=== PATIENT | female | born 1980 | race American Indian/Alaskan Native ===

== ENCOUNTER 2016-06-04 18:04 | Emergency (ER) | payer MEDICAID, OTHER ==
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
[2016-06-04] MEDS ORDERED: Acetaminophen/HYDROcodone 325-10 MG Tab PO ONE (18:31)
[2016-06-04 18:56] LABS: CHLORIDE,CL 104 mmol/L (101-111); SODIUM,NA 139 mmol/L (135-145)
[2016-06-04] MEDS ORDERED: Acetaminophen 500 MG Tab PO ONE (19:24)
[2016-06-04] MEDS ORDERED: Acetaminophen 500 MG Tab ONE (19:25)
== END 2016-06-04 19:25 | disposition home or self-care (01) ==
LOC: DL.ED 18:04
DX: S16.1XXA Strain of muscle, fascia and tendon at neck level, initial encounter (principal); S29.019A Strain of muscle and tendon of unspecified wall of thorax, initial encounter; S39.012A Strain of muscle, fascia and tendon of lower back, initial encounter; E11.9 Type 2 diabetes mellitus without complications; Z86.2 Personal history of diseases of the blood and blood-forming organs and certain disorders involving the immune mechanism; Z98.51 Tubal ligation status; Z88.8 Allergy status to other drugs, medicaments and biological substances; Z91.09 Other allergy status, other than to drugs and biological substances; V43.52XA Car driver injured in collision with other type car in traffic accident, initial encounter
CPT/HCPCS: 36415; 72040; 72070; 72100; 80053; 80305; 81001; 81025; 85025; 99285; A9270; G0480

== ENCOUNTER 2016-09-05 23:26 | Emergency (ER) | payer MEDICAID ==
[2016-09-06 00:25] VITALS: BP 141/70
[2016-09-06] MEDS ORDERED: diphenhydrAMINE 50 MG Cap PO ONE (00:34)
[2016-09-06] MEDS ORDERED: methylPREDNISolone Sodium Succinate 40 MG/1 ML SDV IM ONE (00:34)
--- NOTE | 2016-09-06 00:36 | EDM.PDOC ---
ED HPI GENERAL MEDICAL PROBLEM - General Chief Complaint: Allergic Reaction Stated Complaint: POSSIBLE ALLERGIC REACTION Time Seen by Provider: 09/06/16 00:20 Source of Information: Reports: Patient History Limitations: Reports: No Limitations - History of Present Illness INITIAL COMMENTS - FREE TEXT/NARRATIVE: This 36 yo female patient reports to the ED with a possible allergic reaction. The patient reports she has an area on her right middle finger, right lower lip , left side of her nose and left upper eyelid. 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 Onset: Today Duration: Constant, Getting Worse Location: Reports: Face, Upper Extremity, Right Quality: Reports: Ache, Dull Severity: Mild Improves with: Reports: None Worsens with: Reports: None Associated Symptoms: Reports: No Other Symptoms Lip Pain Score (Numeric/FACES): 3 - Related Data Allergies Allergy/AdvReac Type Severity Reaction Status Date / Time iron Allergy Other Verified 09/06/16 00:11 naproxen Allergy Other Verified 09/06/16 00:11 Home Meds: Home Meds metFORMIN HCl [Metformin HCl] 1,000 mg PO BID 09/17/15 [History] Past Medical History - Past Health History Medical/Surgical History: Denies Medical/Surgical History HEENT History: Reports: Impaired Vision, Other (See Below) Other HEENT History: wears glasses 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 can not . Psychiatric History: Reports: Suicide Attempt Endocrine/Metabolic History: Reports: Diabetes, Type II Hematologic History: Reports: Anemia, Blood Transfusion(s), Iron Deficiency - Infectious Disease History Infectious Disease History: Reports: Chicken Pox - Past Surgical History HEENT Surgical History: Reports: None GI Surgical History: Reports: Cholecystectomy Female Surgical History: Reports: Section, D&C, Dilitation & Evacuation, Tubal Ligation Neurological Surgical History: Reports: None Musculoskeletal Surgical History: Reports: Arthroscopic Knee Social & Family History - Family History Family Medical History: Noncontributory - Tobacco Use Smoking Status *Q: Never Smoker Second Hand Smoke Exposure: No - Caffeine Use Caffeine Use: Reports: Coffee, Soda - Recreational Drug Use Recreational Drug Use: No ED ROS ALLERGIC REACTION - Review of Systems Review Of Systems: ROS reveals no pertinent complaints other than HPI. ED EXAM GENERAL NO PERIP PULSE - Physical Exam Exam: See Below Exam Limited By: No Limitations General Appearance: Alert, WD/WN, No Apparent Distress Eye Exam: Bilateral Eye: EOMI, Normal Inspection, PERRL Ears: Normal External Exam, Normal Canal, Hearing Grossly Normal, Normal TMs Nose: Normal Inspection, Normal Mucosa, No Blood Throat/Mouth: Normal Teeth, Normal Gums, Normal Oropharynx, Normal Voice, No Airway Compromise, Other (pustule on right lower lip) Head: Atraumatic, Normocephalic Neck: Normal Inspection, Supple, Non-Tender, Full Range of Motion Respiratory/Chest: No Respiratory Distress, Lungs Clear, Normal Breath Sounds, No Accessory Muscle Use, Chest Non-Tender Cardiovascular: Normal Peripheral Pulses, Regular Rate, Rhythm, No Edema, No Gallop, No JVD, No Murmur, No Rub GI/Abdominal: Normal Bowel Sounds, Soft, Non-Tender, No Organomegaly, No Distention, No Abnormal Bruit, No Mass (Female) Exam: Deferred Rectal (Female) Exam: Deferred Back Exam: Normal Inspection, Full Range of Motion, NT Extremities: Normal Range of Motion, Non-Tender, No Pedal Edema, Normal Capillary Refill Neurological: Alert, Oriented, CN II-XII Intact, Normal Cognition, Normal Gait, Normal Reflexes, No Motor/Sensory Deficits Psychiatric: Normal Affect, Normal Mood Skin Exam: Warm, Dry, Normal Color, Erythema (right middle finger, right lower lip, left nasal fold, left upper eyelid) Lymphatic: No Adenopathy Course - Vital Signs Last Recorded V/S: Last Vital Signs Temp 36.4 C 09/06/16 00:24 Pulse 66 09/06/16 00:24 Resp 14 09/06/16 00:24 BP 141/70 H 09/06/16 00:24 Pulse Ox 100 09/06/16 00:24 Departure - Departure Time of Disposition: 00:46 Disposition: Home, Self-Care 01 Condition: fair Clinical Impression: Contact dermatitis Qualifiers: Contact dermatitis type: unspecified Contact dermatitis trigger: unspecified trigger Qualified Code(s): L25.9 - Unspecified contact dermatitis, unspecified cause - Discharge Information Instructions: Poison Richa Dermatitis, [id number], Contact Dermatitis, Easy-to- Read Forms: ED Department Discharge Care Plan Goals: The patient was advised of the examination results during the visit. The patient was given an injection of SoluMedrol while in the ED and an oral dose of Benadryl. The patient was discharged with a script for a Medrol Dose Pack to take as directed. The patient was encouraged to wash her clothing and bedding and warm water. If the patient has any additional symptoms or concerns, the patient should follow-up with her primary care facility or return to the emergency department.
== END 2016-09-06 00:58 | disposition home or self-care (01) ==
LOC: DL.ED 23:26
DX: L25.9 Unspecified contact dermatitis, unspecified cause (principal); E11.9 Type 2 diabetes mellitus without complications; Z86.2 Personal history of diseases of the blood and blood-forming organs and certain disorders involving the immune mechanism; Z90.710 Acquired absence of both cervix and uterus; Z98.890 Other specified postprocedural states; Z91.09 Other allergy status, other than to drugs and biological substances; Z90.49 Acquired absence of other specified parts of digestive tract; Z98.51 Tubal ligation status
CPT/HCPCS: 96372; 99283; 99284; J2920; Q0163

== ENCOUNTER 2016-12-21 16:45 | Emergency (ER) | payer MEDICAID ==
[2016-12-21] MEDS ORDERED: Acetaminophen/HYDROcodone 325-10 MG Tab PO ONE (16:46)
[2016-12-21 18:29] VITALS: BP 133/75
[2016-12-21] MEDS ORDERED: Clindamycin HCl 150 MG Cap PO ONE (19:39)
--- NOTE | 2016-12-21 19:44 | EDM.PDOC ---
ED HPI GENERAL MEDICAL PROBLEM - General Chief Complaint: Skin Complaint Stated Complaint: SPIDER BITE, IRRITATED AND PAINFUL Time Seen by Provider: 12/21/16 19:40 Source of Information: Reports: Patient History Limitations: Reports: No Limitations - History of Present Illness INITIAL COMMENTS - FREE TEXT/NARRATIVE: got bit few days ago, has been doing daily dressing changes with ABX oint' was doing ok till now. 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 can not . Psychiatric History: Reports: Suicide Attempt Endocrine/Metabolic History: Reports: Diabetes, Type II Hematologic History: Reports: Anemia, Blood Transfusion(s), Iron Deficiency - Infectious Disease History Infectious Disease History: Reports: Chicken Pox - Past Surgical History HEENT Surgical History: Reports: None GI Surgical History: Reports: Cholecystectomy Female Surgical History: Reports: Section, D&C, Dilitation & Evacuation, Tubal Ligation Neurological Surgical History: Reports: None Musculoskeletal Surgical History: Reports: Arthroscopic Knee Social & Family History - Family History Family Medical History: Noncontributory - Tobacco Use Smoking Status *Q: Never Smoker Second Hand Smoke Exposure: No - Caffeine Use Caffeine Use: Reports: Coffee, Soda, Tea - Recreational Drug Use Recreational Drug Use: No ED ROS GENERAL - Review of Systems Review Of Systems: ROS reveals no pertinent complaints other than HPI. ED EXAM, SKIN/RASH Exam: See Below Exam Limited By: No Limitations General Appearance: Alert, WD/WN, Mild Distress, Other (discomfort) Ears: Hearing Grossly Normal Head: Atraumatic Neck: Non-Tender, Full Range of Motion Respiratory/Chest: No Respiratory Distress Cardiovascular: Regular Rate, Rhythm GI/Abdominal: Soft, Non-Tender Extremities: Other (left lateral calf local erythema infected bug bite without lymphangitis) Neurological: Alert, Oriented, Normal Cognition, Normal Gait, No Motor/Sensory Deficits Psychiatric: Normal Affect, Normal Mood Skin: Warm, Dry, Normal Color Location, Skin: Lower Extremity, Left Associated features: Warmth, Tenderness, Inflammation. No: Lymphangitis, Weeping Lymphatic: No Adenopathy Course - Vital Signs Last Recorded V/S: Last Vital Signs Temp 36.5 C 12/21/16 18:28 Pulse 80 12/21/16 18:28 Resp 16 12/21/16 18:28 BP 133/75 12/21/16 18:28 Pulse Ox 100 12/21/16 18:28 - Orders/Labs/Meds Orders: Active Orders 24 hr Category Date Time Status Clindamycin HCl [Cleocin] Med 12/21/16 19:39 Once 150 mg PO ONETIME ONE Departure - Departure Time of Disposition: 19:42 Disposition: Home, Self-Care 01 Condition: Good Clinical Impression: Infected bite wound - Discharge Information Instructions: Spider Bite, [id number] Additional Instructions: 1) elevate leg as much as possible 2) continue daily wound care 3) recheck if looks worse rx given; clindamycin 150mg qid x 40 vicodin 5/325mg bid prn x 12 - My Orders Last 24 Hours: My Active Orders 12/21/16 19:39 Clindamycin HCl [Cleocin] 150 mg PO ONETIME ONE - Assessment/Plan Last 24 Hours: My Active Orders 12/21/16 19:39 Clindamycin HCl [Cleocin] 150 mg PO ONETIME ONE
[2016-12-21] MEDS ORDERED: Acetaminophen/HYDROcodone 325-10 MG Tab ONE (19:45)
== END 2016-12-21 19:49 | disposition home or self-care (01) ==
LOC: DL.ED 16:45
DX: S80.862A Insect bite (nonvenomous), left lower leg, initial encounter (principal); L08.9 Local infection of the skin and subcutaneous tissue, unspecified; E11.9 Type 2 diabetes mellitus without complications; Z90.49 Acquired absence of other specified parts of digestive tract; Z98.890 Other specified postprocedural states; Z86.2 Personal history of diseases of the blood and blood-forming organs and certain disorders involving the immune mechanism; Z79.84 Long term (current) use of oral hypoglycemic drugs; Z98.51 Tubal ligation status; Z88.8 Allergy status to other drugs, medicaments and biological substances; W57.XXXA Bitten or stung by nonvenomous insect and other nonvenomous arthropods, initial encounter
CPT/HCPCS: 99283; A9270

== ENCOUNTER 2017-03-20 23:25 | Emergency (ER) | payer MEDICAID ==
--- NOTE | 2017-03-21 00:15 | EDM.PDOC ---
ED HPI GENERAL MEDICAL PROBLEM - General Chief Complaint: Respiratory Problem Stated Complaint: BAD COUGH [id number] Time Seen by Provider: 03/21/17 00:05 Source of Information: Reports: Patient History Limitations: Reports: No Limitations - History of Present Illness INITIAL COMMENTS - FREE TEXT/NARRATIVE: cough since friday. No fever, mild sore throat. Children also ill at home. 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 can not . Psychiatric History: Reports: Suicide Attempt Endocrine/Metabolic History: Reports: Diabetes, Type II Hematologic History: Reports: Anemia, Blood Transfusion(s), Iron Deficiency - Infectious Disease History Infectious Disease History: Reports: Chicken Pox - Past Surgical History HEENT Surgical History: Reports: None GI Surgical History: Reports: Cholecystectomy Female Surgical History: Reports: Section, D&C, Dilitation & Evacuation, Tubal Ligation Neurological Surgical History: Reports: None Musculoskeletal Surgical History: Reports: Arthroscopic Knee Social & Family History - Family History Family Medical History: Noncontributory - Tobacco Use Smoking Status *Q: Never Smoker Second Hand Smoke Exposure: No - Caffeine Use Caffeine Use: Reports: Soda - Recreational Drug Use Recreational Drug Use: No ED ROS GENERAL - Review of Systems Review Of Systems: ROS reveals no pertinent complaints other than HPI. ED EXAM, GENERAL - Physical Exam Exam: See Below Exam Limited By: No Limitations General Appearance: Alert, No Apparent Distress Eye Exam: Bilateral Eye: EOMI Ears: Normal External Exam, Normal TMs Nose: Normal Inspection, Normal Mucosa Throat/Mouth: Normal Inspection, Inflammation (mild posterior pharyngeal errythema) Neck: Normal Inspection. No: Lymphadenopathy (L), Lymphadenopathy (R) Respiratory/Chest: No Respiratory Distress Cardiovascular: Normal Peripheral Pulses, Regular Rate, Rhythm GI/Abdominal: Normal Bowel Sounds Extremities: Normal Inspection Neurological: Alert, Oriented, Normal Cognition Psychiatric: Normal Affect Skin Exam: Warm, Dry, Intact, Normal Color Course - Vital Signs Last Recorded V/S: Last Vital Signs Temp 97.8 F 03/21/17 01:07 Pulse 87 03/21/17 01:07 Resp 16 03/21/17 01:07 BP 122/59 L 03/21/17 01:07 Pulse Ox 97 03/21/17 01:07 - Orders/Labs/Meds Orders: Active Orders 24 hr Category Date Time Status CULTURE STREP A CONFIRMATION [RM] Stat Lab 03/21/17 00:10 Results STREP SCRN A RAPID W CULT CONF [RM] Stat Lab 03/21/17 00:10 Results Departure - Departure Time of Disposition: :27 Disposition: Home, Self-Care 01 Condition: Good Clinical Impression: Upper respiratory infection Qualifiers: URI type: unspecified viral URI Qualified Code(s): J06.9 - Acute upper respiratory infection, unspecified - Discharge Information Instructions: Upper Respiratory Infection, Adult, [id number] Forms: ED Department Discharge Additional Instructions: tylenol 650mg every 4 hours as needed for fever/ discomfort increase fluid intake Muccinex per package instruction for congestion - My Orders Last 24 Hours: My Active Orders 03/21/17 00:10 CULTURE STREP A CONFIRMATION [RM] Stat STREP SCRN A RAPID W CULT CONF [RM] Stat - Assessment/Plan Last 24 Hours: My Active Orders 03/21/17 00:10 CULTURE STREP A CONFIRMATION [RM] Stat STREP SCRN A RAPID W CULT CONF [RM] Stat
[2017-03-21 01:09] VITALS: BP 122/59
== END 2017-03-21 01:51 | disposition home or self-care (01) ==
LOC: DL.ED 23:25
DX: J06.9 Acute upper respiratory infection, unspecified (principal); E11.9 Type 2 diabetes mellitus without complications; Z79.84 Long term (current) use of oral hypoglycemic drugs; Z88.8 Allergy status to other drugs, medicaments and biological substances
CPT/HCPCS: 87081; 87430; 99283

== ENCOUNTER 2017-05-19 15:40 | Emergency (ER) | payer MEDICAID ==
[2017-05-19 15:52] VITALS: BP 132/74
--- NOTE | 2017-05-19 16:10 | EDM.PDOC ---
Scribed by Marilee Li 05/19/17 1608 for Den Spivey [facility] ED HPI GENERAL MEDICAL PROBLEM - General Chief Complaint: Back Pain or Injury Stated Complaint: cold back spasms [id number] Time Seen by Provider: 05/19/17 15:45 Source of Information: Reports: Patient, RN, RN Notes Reviewed History Limitations: Reports: No Limitations - History of Present Illness INITIAL COMMENTS - FREE TEXT/NARRATIVE: Patient states yesterday she got sick. Today she had got cough and muscle spasms. No nausea or vomiting. Her fever was as high as 101.2 yesterday. She has been taking Emergan C and Ibuprofen last night. She muscle spasms from the right back to the front abdomen. The muscle spasms are also from the left back to the abdomen. Onset Date: 05/18/17 Duration: Getting Worse Location: Reports: Abdomen, Back Quality: Reports: Ache Severity: Moderate Improves with: Reports: None Worsens with: Reports: None Associated Symptoms: Reports: No Other Symptoms Back Pain Score (Numeric/FACES): 8 - Related Data Allergies Allergy/AdvReac Type Severity Reaction Status Date / Time iron Allergy Other Verified 03/21/17 00:02 naproxen Allergy Other Verified 03/21/17 00:02 Home Meds: Home Meds metFORMIN HCl [Metformin HCl] 1,000 mg PO BID 09/17/15 [History] Past Medical History - Past Health History Medical/Surgical History: Denies Medical/Surgical History HEENT History: Reports: Impaired Vision, Other (See Below) Other HEENT History: 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 can not . Psychiatric History: Reports: Suicide Attempt Endocrine/Metabolic History: Reports: Diabetes, Type II Hematologic History: Reports: Anemia, Blood Transfusion(s), Iron Deficiency - Infectious Disease History Infectious Disease History: Reports: Chicken Pox - Past Surgical History HEENT Surgical History: Reports: None GI Surgical History: Reports: Cholecystectomy Female Surgical History: Reports: Section, D&C (x2), Dilitation & Evacuation, Hysterectomy, Tubal Ligation Neurological Surgical History: Reports: None Musculoskeletal Surgical History: Reports: Arthroscopic Knee Social & Family History - Family History Family Medical History: Noncontributory - Tobacco Use Smoking Status *Q: Never Smoker Second Hand Smoke Exposure: No - Caffeine Use Caffeine Use: Reports: Soda - Recreational Drug Use Recreational Drug Use: No ED ROS GENERAL - Review of Systems Review Of Systems: ROS reveals no pertinent complaints other than HPI. ED EXAM, GENERAL - Physical Exam Exam: See Below Exam Limited By: No Limitations General Appearance: Alert, WD/WN, No Apparent Distress Eye Exam: Bilateral Eye: EOMI, Normal Inspection, PERRL Ears: Normal External Exam, Normal Canal, Hearing Grossly Normal, Normal TMs Nose: Normal Inspection, Normal Mucosa, No Blood Throat/Mouth: Other (tonsils erythematous) Head: Atraumatic, Normocephalic Neck: Normal Inspection, Supple, Non-Tender, Full Range of Motion Respiratory/Chest: No Respiratory Distress, Lungs Clear, Normal Breath Sounds, No Accessory Muscle Use, Chest Non-Tender Cardiovascular: Normal Peripheral Pulses, Regular Rate, Rhythm, No Edema, No Gallop, No JVD, No Murmur, No Rub GI/Abdominal: Other (obese) (Female) Exam: Deferred Rectal (Female) Exam: Deferred Back Exam: Normal Inspection, Full Range of Motion, NT Extremities: Normal Inspection, Normal Range of Motion, Non-Tender, Normal Capillary Refill, No Pedal Edema Neurological: Alert, Oriented, CN II-XII Intact, Normal Cognition, Normal Gait, Normal Reflexes, No Motor/Sensory Deficits Psychiatric: Normal Affect, Normal Mood Skin Exam: Warm, Dry, Intact, Normal Color, No Rash Lymphatic: No Adenopathy Course - Vital Signs Last Recorded V/S: Last Vital Signs Temp 37.4 C 05/19/17 15:51 Pulse 103 H 05/19/17 15:51 Resp 16 05/19/17 15:51 BP 132/74 05/19/17 15:51 Pulse Ox 99 05/19/17 15:51 - Orders/Labs/Meds Orders: Active Orders 24 hr Category Date Time Status Chest 2V [CR] Urgent Exams 05/19/17 15:58 Taken CBC WITH AUTO DIFF [HEME] Urgent Lab 05/19/17 16:12 Results CULTURE STREP A CONFIRMATION [RM] Stat Lab 05/19/17 15:57 Results MANUAL DIFFERENTIAL QA/NC [HEME] Urgent Lab 05/19/17 16:12 Results STREP SCRN A RAPID W CULT CONF [RM] Stat Lab 05/19/17 15:57 Results Sodium Chloride 0.9% [Normal Saline] 1,000 ml Med 05/19/17 16:52 Ordered IV .BOLUS Medication Orders Sodium Chloride (Normal Saline) 1,000 mls @ 999 mls/hr IV .BOLUS ONE Stop: 05/19/17 17:52 Labs: Laboratory Tests 05/19/17 05/19/17 Range/Units 16:12 16:12 WBC 5.5 (5.0-10.0) 10^3/uL RBC 4.62 (4.2-5.4) 10^6/uL Hgb 10.1 L D (12.0-16.0) g/dL Hct 33.7 L (37.0-47.0) % MCV 72.9 L D (80-100) fL MCH 21.9 L (27.0-34.0) pg MCHC 30.0 L (33.0-35.0) g/dL Plt Count 262 (150-450) 10^3/uL Neut % (Auto) 47.6 (42.2-75.2) % Lymph % (Auto) 26.9 (20.5-50.1) % Routt % (Auto) 22.2 H (2-8) % Eos % (Auto) 2.4 (1.0-3.0) % Baso % (Auto) 0.9 (0.0-1.0) % Add Manual Diff Yes Sodium 129 L D (135-145) mmol/L Potassium 3.6 (3.6-5.0) mmol/L Chloride 97 L (101-111) mmol/L Carbon Dioxide 23.0 (21.0-31.0) mmol/L Anion Gap 12.6 BUN 8 (7-18) mg/dL Creatinine 0.7 (0.6-1.3) mg/dL Est Cr Clr Drug Dosing 99.01 mL/min Estimated GFR (MDRD) > 60 BUN/Creatinine Ratio 11.42 Glucose 213 H (74-105) mg/dL Calcium 8.3 L (8.4-10.2) mg/dl Total Bilirubin 0.5 (0.2-1.0) mg/dL AST 30 (10-42) IU/L ALT 32 (10-60) IU/L Alkaline Phosphatase 62 (42-121) IU/L Total Protein 8.2 (6.7-8.2) g/dl Albumin 4.0 (3.2-5.5) g/dl Globulin 4.2 Albumin/Globulin Ratio 0.95 Meds: Medications Generic Name Dose Route Start Last Admin Trade Name Freq PRN Reason Stop Dose Admin Sodium Chloride 1,000 mls @ 999 mls/hr 05/19/17 16:52 Normal Saline IV 05/19/17 17:52 .BOLUS ONE Departure - Departure Time of Disposition: 17:50 Disposition: Home, Self-Care 01 Condition: Fair Clinical Impression: Influenza, Hyponatremia - Discharge Information Instructions: Influenza, Adult, [id number], Hyponatremia Forms: ED Department Discharge Care Plan Goals: The patient was advised of the examination, lab and x-ray results during the visit. The patient was given a liter of IV fluid while in the ED. The patient was discharged with a script for Tamiflu (75 mg) to take 1 by mouth 2 times per day for 5 days. The patient was encouraged to continue to take Tylenol or ibuprofen as directed for temporary symptom relief. If the patient has any additional symptoms or concerns, the patient should follow-up with her primary care facility or return to the ED. - My Orders Last 24 Hours: My Active Orders 05/19/17 15:57 CULTURE STREP A CONFIRMATION [RM] Stat STREP SCRN A RAPID W CULT CONF [RM] Stat 05/19/17 15:58 Chest 2V [CR] Urgent 05/19/17 16:12 CBC WITH AUTO DIFF [HEME] Urgent MANUAL DIFFERENTIAL QA/NC [HEME] Urgent 05/19/17 16:52 Sodium Chloride 0.9% [Normal Saline] 1,000 ml IV .BOLUS - Assessment/Plan Last 24 Hours: My Active Orders 05/19/17 15:57 CULTURE STREP A CONFIRMATION [RM] Stat STREP SCRN A RAPID W CULT CONF [RM] Stat 05/19/17 15:58 Chest 2V [CR] Urgent 05/19/17 16:12 CBC WITH AUTO DIFF [HEME] Urgent MANUAL DIFFERENTIAL QA/NC [HEME] Urgent 05/19/17 16:52 Sodium Chloride 0.9% [Normal Saline] 1,000 ml IV .BOLUS I have read and agree with the documentation that has been completed regarding this visit. By signing this record, I attest that the documentation was completed in my physical presence and is an accurate record of the encounter.
[2017-05-19 16:41] LABS: ANION GAP 12.6; CHLORIDE,CL 97 mmol/L (101-111); SODIUM,NA 129 mmol/L (135-145)
[2017-05-19] MEDS ORDERED: Sodium Chloride 0.9% 1,000 ML IV ONE (16:52)
== END 2017-05-19 18:02 | disposition home or self-care (01) ==
LOC: DL.ED 15:40
DX: J11.1 Influenza due to unidentified influenza virus with other respiratory manifestations (principal); E87.1 Hypo-osmolality and hyponatremia; E11.9 Type 2 diabetes mellitus without complications; Z88.6 Allergy status to analgesic agent; Z91.048 Other nonmedicinal substance allergy status
CPT/HCPCS: 36415; 71046; 80053; 85025; 87081; 87430; 96360; 99283; J7030

== ENCOUNTER 2017-06-18 02:26 | Emergency (ER) | payer MEDICAID ==
[2017-06-18 02:31] VITALS: BP 129/73
[2017-06-18] MEDS: Ibuprofen 600 MG Tab PO ONE (03:39)
--- NOTE | 2017-06-18 03:41 | EDM.PDOC ---
ED HPI GENERAL MEDICAL PROBLEM - General Chief Complaint: General Stated Complaint: FELL, ARM AND LEG PAIN [id number] Time Seen by Provider: 06/18/17 02:30 Source of Information: Reports: Patient History Limitations: Reports: No Limitations - History of Present Illness INITIAL COMMENTS - FREE TEXT/NARRATIVE: Fell yesterday getting into car on to right elow and right hip and thigh. Pain controlled earlier with ibuprofen but woke with pain and tingling down elbow to 5th finger, intermittently if moves arm in certain way. no loss of consciousness. Increased sciatic pain from usual after fall but no numbness or weakness. 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 can not . Psychiatric History: Reports: Suicide Attempt Endocrine/Metabolic History: Reports: Diabetes, Type II Hematologic History: Reports: Anemia, Blood Transfusion(s), Iron Deficiency - Infectious Disease History Infectious Disease History: Reports: Chicken Pox, MRSA - Past Surgical History HEENT Surgical History: Reports: None GI Surgical History: Reports: Cholecystectomy Female Surgical History: Reports: Section, D&C, Dilitation & Evacuation, Hysterectomy, Tubal Ligation Neurological Surgical History: Reports: None Musculoskeletal Surgical History: Reports: Arthroscopic Knee Social & Family History - Family History Family Medical History: Noncontributory - Tobacco Use Smoking Status *Q: Never Smoker Second Hand Smoke Exposure: No - Caffeine Use Caffeine Use: Reports: Soda - Recreational Drug Use Recreational Drug Use: No ED ROS GENERAL - Review of Systems Review Of Systems: ROS reveals no pertinent complaints other than HPI. ED EXAM, GENERAL - Physical Exam Exam: See Below Exam Limited By: No Limitations General Appearance: Alert, Mild Distress Eye Exam: Bilateral Eye: EOMI Ears: Normal External Exam, Normal TMs Nose: Normal Inspection Throat/Mouth: Normal Inspection Head: Atraumatic, Normocephalic Neck: Thyromegaly Respiratory/Chest: No Respiratory Distress, Lungs Clear Cardiovascular: Normal Peripheral Pulses, Regular Rate, Rhythm Back Exam: Other (tender over right SI). No: Vertebral Tenderness Extremities: Normal Range of Motion, Arm Pain (right elbow no bruising or swelling, no wrist deformity mild tenderness with palpation to wrist and elbow, less with movment.), Other (good gross motor and fine motor of right uper extremity. Busy texting throughout ED visit. ) Neurological: Alert, Oriented Psychiatric: Normal Affect Skin Exam: Warm, Dry, Intact. No: Ecchymosis Course - Vital Signs Last Recorded V/S: Last Vital Signs Temp 96.8 F 06/18/17 02:28 Pulse 87 06/18/17 02:28 Resp 18 06/18/17 02:28 BP 129/73 06/18/17 02:28 Pulse Ox 100 06/18/17 02:28 - Orders/Labs/Meds Orders: Active Orders 24 hr Category Date Time Status Ibuprofen [Motrin] Med 06/18/17 03:35 Once 600 mg PO ONETIME ONE - Radiology Interpretation Free Text/Narrative:: Left elbow negative for fracture Departure - Departure Time of Disposition: 03:36 Disposition: Home, Self-Care 01 Condition: Good Clinical Impression: Elbow pain, right Fall Qualifiers: Encounter type: initial encounter Qualified Code(s): W19.XXXA - Unspecified fall, initial encounter - Discharge Information Instructions: Joint Pain, [id number] Additional Instructions: llight lifting with right arm alternate tylenol 650mg and ibuprofen 600mg every 4 hours as needed for pain control follow up in clinic one week if continued pain - My Orders Last 24 Hours: My Active Orders 06/18/17 03:35 Ibuprofen [Motrin] 600 mg PO ONETIME ONE - Assessment/Plan Last 24 Hours: My Active Orders 06/18/17 03:35 Ibuprofen [Motrin] 600 mg PO ONETIME ONE
== END 2017-06-18 03:42 | disposition home or self-care (01) ==
LOC: DL.ED 02:26
DX: M25.521 Pain in right elbow (principal); E11.9 Type 2 diabetes mellitus without complications; Z88.6 Allergy status to analgesic agent; Z91.048 Other nonmedicinal substance allergy status; Z79.84 Long term (current) use of oral hypoglycemic drugs; W19.XXXA Unspecified fall, initial encounter
CPT/HCPCS: 73080; 99283; A9270

== ENCOUNTER 2018-07-05 20:54 | Emergency (ER) | payer MEDICAID ==
[2018-07-05 21:23] VITALS: BP 152/92
[2018-07-05] MEDS ORDERED: Amoxicillin/Clavulanate K 875-125 MG Tab PO ONE (23:53)
--- NOTE | 2018-07-05 23:59 | EDM.PDOC ---
ED HPI GENERAL MEDICAL PROBLEM - General Chief Complaint: ENT Problem Stated Complaint: RT JAW NUMB [id number] Time Seen by Provider: 07/05/18 23:45 Source of Information: Reports: Patient History Limitations: Reports: No Limitations - History of Present Illness INITIAL COMMENTS - FREE TEXT/NARRATIVE: This 38 yo female patient reports to the ED with right sided facial pain, pressure and numbness. The patient reports her symptoms started 2-3 days ago. The patient also reports left elbow pain for the past 2 weeks. The patient has been taking ibuprofen and Afrin for temporary symptom relief. Duration: Day(s):, Constant Location: Reports: Face (right side) Quality: Reports: Ache, Dull Severity: Moderate Improves with: Reports: None Worsens with: Reports: None Associated Symptoms: Reports: No Other Symptoms Treatments [employer]: Reports: NSAIDS Left Elbow Pain Score (Numeric/FACES): 6 - Related Data Allergies Allergy/AdvReac Type Severity Reaction Status Date / Time iron Allergy Other Verified 07/05/18 21:23 naproxen Allergy Other Verified 07/05/18 21:23 Home Meds: Home Meds metFORMIN HCl [Metformin HCl] 1,000 mg PO BID 09/17/15 [History] Ibuprofen 800 mg PO Q8H PRN 10/25/17 [History] Past Medical History - Past Health History Medical/Surgical History: Denies Medical/Surgical History HEENT History: Reports: Impaired Vision, Other (See Below) Other HEENT History: wears glasses Cardiovascular History: Reports: None Respiratory History: Reports: None Genitourinary History: Reports: None 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 can not . Neurological History: Reports: None Psychiatric History: Reports: Anxiety, Suicide Attempt Endocrine/Metabolic History: Reports: Diabetes, Type II Hematologic History: Reports: Anemia, Blood Transfusion(s), Iron Deficiency Dermatologic History: Reports: None - Infectious Disease History Infectious Disease History: Reports: Chicken Pox, MRSA - Past Surgical History HEENT Surgical History: Reports: None Respiratory Surgical History: Reports: None GI Surgical History: Reports: Cholecystectomy Female Surgical History: Reports: Section, D&C, Dilitation & Evacuation, Hysterectomy, Tubal Ligation Neurological Surgical History: Reports: None Musculoskeletal Surgical History: Reports: Arthroscopic Knee Dermatological Surgical History: Reports: None Social & Family History - Family History Family Medical History: Noncontributory - Tobacco Use Smoking Status *Q: Unknown Ever Smoked - Caffeine Use Caffeine Use: Reports: None - Recreational Drug Use Recreational Drug Use: No ED ROS ENT - Review of Systems Review Of Systems: ROS reveals no pertinent complaints other than HPI. ED EXAM, ENT - Physical Exam Exam: See Below Exam Limited By: Uncooperative General Appearance: Alert, Mild Distress Eye Exam: Bilateral Eye: EOMI, Normal Inspection, PERRL Ears: Normal External Exam, Normal Canal, Hearing Grossly Normal, Normal TMs Nose: Normal Inspection, Normal Mucousa, No Blood Mouth/Throat: Normal Inspection, Normal Gums, Normal Lips, Normal Oropharynx, Normal Teeth Head: Sinus Tenderness (right maxillary, ethmoid and frontal) Neck: Normal Inspection, Supple, Non-Tender, Full Range of Motion Respiratory/Chest: No Respiratory Distress, Lungs Clear, Normal Breath Sounds, No Accessory Muscle Use, Chest Non-Tender Cardiovascular: Normal Peripheral Pulses, Regular Rate, Rhythm, No Edema, No Gallop, No JVD, No Murmur, No Rub GI/Abdominal: Normal Bowel Sounds, Soft, Non-Tender, No Organomegaly, No Distention, No Abnormal Bruit, No Mass (Female) Exam: Deferred Rectal (Female) Exam: Deferred Back: Normal Inspection, Full Range of Motion Extremities: Normal Inspection, Normal Range of Motion, Non-Tender, No Pedal Edema, Normal Capillary Refill Neurological: Alert, Oriented, CN II-XII Intact, Normal Cognition, Normal Gait, Normal Reflexes, No Motor/Sensory Deficits Psychiatric: Normal Affect, Normal Mood Skin: Warm, Dry, Intact, Normal Color, No Rash Lymphatic: No Adenopathy Course - Vital Signs Last Recorded V/S: Last Vital Signs Temp 37.2 C 07/05/18 21:20 Pulse 103 H 07/05/18 21:20 Resp 18 07/05/18 21:20 BP 152/92 H 07/05/18 21:20 Pulse Ox 100 07/05/18 21:20 - Orders/Labs/Meds Orders: Active Orders 24 hr Category Date Time Status Amoxicillin/Clavulanate K [Augmentin 875 MG/125 MG] Med 07/05/18 23:53 Once 1 tab PO ONETIME ONE Medication Orders Amoxicillin/Clavulanate Potassium (Augmentin 875 Mg/125 Mg) 1 tab PO ONETIME ONE Stop: 07/05/18 23:54 Meds: Medications Generic Name Dose Route Start Last Admin Trade Name Jose Eduardo PRN Reason Stop Dose Admin Amoxicillin/Clavulanate Potassium 1 tab 07/05/18 23:53 Augmentin 875 Mg/125 Mg PO 07/05/18 23:54 ONETIME ONE Departure - Departure Time of Disposition: 23:57 Disposition: Home, Self-Care 01 Condition: Fair Clinical Impression: Sinusitis Qualifiers: Sinusitis location: pansinusitis Chronicity: acute Recurrence: non-recurrent Qualified Code(s): J01.40 - Acute pansinusitis, unspecified - Discharge Information *PRESCRIPTION DRUG MONITORING PROGRAM REVIEWED*: Not Applicable *COPY OF PRESCRIPTION DRUG MONITORING REPORT IN PATIENT YANETH: Not Applicable Instructions: Sinusitis, Adult, [id number] Care Plan Goals: The patient was advised of the examination and lab results during the visit. The patient was discharged with a script for Augmentin (500/125) to take 1 by mouth 2 times per day for 10 days. The patient should be encouraged to increase her oral fluid intake over the next 48 hours. The patient may continue to use [id number] medications for temporary symptom relief. If the patient has any additional symptoms or concerns, the patient should either return to the emergency department or follow-up with her primary care facility. - My Orders Last 24 Hours: My Active Orders 07/05/18 23:53 Amoxicillin/Clavulanate K [Augmentin 875 MG/125 MG] 1 tab PO ONETIME ONE - Assessment/Plan Last 24 Hours: My Active Orders 07/05/18 23:53 Amoxicillin/Clavulanate K [Augmentin 875 MG/125 MG] 1 tab PO ONETIME ONE
== END 2018-07-06 00:02 | disposition home or self-care (01) ==
LOC: DL.ED 20:54
DX: J01.40 Acute pansinusitis, unspecified (principal); E11.9 Type 2 diabetes mellitus without complications; Z88.5 Allergy status to narcotic agent; Z79.84 Long term (current) use of oral hypoglycemic drugs
CPT/HCPCS: 99282; A9270

== ENCOUNTER 2021-03-19 19:03 | Emergency (ER) | payer MEDICAID ==
[2021-03-19 19:28] VITALS: BP 144/89; PULSE 101
[2021-03-19 20:02] LABS: CORONAVIRUS COVID-19 NAA POSITIVE (NEGATIVE)
[2021-03-19 20:22] LABS: ANION GAP 13.4 mEq/L (7-13); CHLORIDE,CL 95 mmol/L (98-107); SODIUM,NA 130 mmol/L (136-145)
[2021-03-19] MEDS ORDERED: Amoxicillin/Clavulanate K 875-125 MG Tab PO ONE (20:33)
[2021-03-19] MEDS ORDERED: Benzonatate 100 MG Cap PO ONE (20:33)
[2021-03-19] MEDS ORDERED: predniSONE 20 MG Tab PO ONE (20:33)
--- NOTE | 2021-03-19 20:40 | EDM.PDOC ---
ED HPI GENERAL MEDICAL PROBLEM - General Chief Complaint: Respiratory Problem Stated Complaint: BODY ACHES,COUGHING Time Seen by Provider: 03/19/21 19:30 Source of Information: Reports: Patient History Limitations: Reports: No Limitations - History of Present Illness INITIAL COMMENTS - FREE TEXT/NARRATIVE: Onset symptoms Friday mervat with sinus pressure congestion Cough , Body aches yesterday. No fever No sore throat No nausea, vomiting or diarrhea. Pushing liquids, tea and powerade. 2 worders sick with cough last week. No prior flu or COVID vaccines. Generalized Pain Score (Numeric/FACES): 10 - Related Data Allergies Allergy/AdvReac Type Severity Reaction Status Date / Time iron Allergy Other Verified 03/19/21 20:47 naproxen Allergy Other Verified 03/19/21 20:47 Home Meds: Home Meds . [Unable to Verify Home Med List] 03/19/21 [History] Past Medical History - Past Health History Medical/Surgical History: Denies Medical/Surgical History HEENT History: Reports: Impaired Vision, Other (See Below) Other HEENT History: wears glasses Cardiovascular History: Reports: None Respiratory History: Reports: None Genitourinary History: Reports: None DEFECT CUTTER History: Reports: , Spontaneous , Other (See Below) Other DEFECT CUTTER History: hx of deliveries, has a cerclage in place, previous csection for 24 week fetus. can not . Neurological History: Reports: None Psychiatric History: Reports: Anxiety, Suicide Attempt Endocrine/Metabolic History: Reports: Diabetes, Type II Hematologic History: Reports: Anemia, Blood Transfusion(s), Iron Deficiency Dermatologic History: Reports: None - Infectious Disease History Infectious Disease History: Reports: Chicken Pox, MRSA - Past Surgical History HEENT Surgical History: Reports: None Respiratory Surgical History: Reports: None GI Surgical History: Reports: Cholecystectomy Female Surgical History: Reports: Section, D&C, Dilitation & Evacuation, Hysterectomy, Tubal Ligation Neurological Surgical History: Reports: None Musculoskeletal Surgical History: Reports: Arthroscopic Knee Dermatological Surgical History: Reports: None Social & Family History - Family History Family Medical History: No Pertinent Family History - Tobacco Use Tobacco Use Status *Q: Never Tobacco User Second Hand Smoke Exposure: No - Caffeine Use Caffeine Use: Reports: Coffee, Soda - Recreational Drug Use Recreational Drug Use: No - Living Situation & Occupation Living situation: Reports: with Family Occupation: Disabled ED ROS GENERAL - Review of Systems Review Of Systems: Comprehensive ROS is negative, except as noted in HPI. ED EXAM, GENERAL - Physical Exam Exam: See Below Exam Limited By: No Limitations General Appearance: Alert, Mild Distress Eye Exam: Bilateral Eye: EOMI, PERRL Ears: Normal External Exam, Normal TMs Nose: Normal Inspection Throat/Mouth: Normal Inspection Head: Sinus Tenderness (ethmoid maxillary) Neck: Lymphadenopathy (L), Lymphadenopathy (R) Respiratory/Chest: No Respiratory Distress, Lungs Clear, Normal Breath Sounds, Other (dry cough) Cardiovascular: Normal Peripheral Pulses, Regular Rate, Rhythm GI/Abdominal: Normal Bowel Sounds, Soft Extremities: Other (generalized pain) Neurological: Alert, Oriented, Normal Cognition Psychiatric: Normal Affect Skin Exam: Warm, Dry, Intact, Normal Color Course - Vital Signs Last Recorded V/S: Last Vital Signs Temp 100.3 F 03/19/21 19:15 Pulse 101 H 03/19/21 19:15 Resp 20 03/19/21 19:15 BP 144/89 H 03/19/21 19:15 Pulse Ox 95 03/19/21 19:15 - Orders/Labs/Meds Orders: Active Orders 24 hr Category Date Time Status CXR [Chest 1V Frontal] [CR] Urgent Exams 03/19/21 19:38 Taken CULTURE BLOOD [BC] Stat Lab 03/19/21 19:56 Received Labs: Laboratory Tests 03/19/21 03/19/21 03/19/21 Range/Units 19:15 19:56 19:56 WBC 5.6 (5.0-10.0) 10^3/uL RBC 4.80 (4.2-5.4) 10^6/uL Hgb 14.9 (12.0-16.0) g/dL Hct 41.8 (37.0-47.0) % MCV 87.1 (80-100) fL MCH 31.0 (27.0-34.0) pg MCHC 35.6 H (33.0-35.0) g/dL Plt Count 187 (150-450) 10^3/uL Neut % (Auto) 64.8 (42.2-75.2) % Lymph % (Auto) 21.2 (20.5-50.1) % Ponce % (Auto) 13.1 H (2-8) % Eos % (Auto) 0.5 L (1.0-3.0) % Baso % (Auto) 0.4 (0.0-1.0) % Sodium 130 L (136-145) mmol/L Potassium 3.4 L (3.5-5.1) mmol/L Chloride 95 L (98-107) mmol/L Carbon Dioxide 25 (21-32) mmol/L Anion Gap 13.4 H (7-13) mEq/L BUN 8 (7-18) mg/dL Creatinine 0.75 (0.55-1.02) mg/dL Est Cr Clr Drug Dosing TNP Estimated GFR (MDRD) > 60 BUN/Creatinine Ratio 10.7 (No establ ref range) Glucose 364 H (70-99) mg/dL Calcium 7.8 L (8.5-10.1) mg/dL Magnesium 1.6 L (1.8-2.4) mg/dL Total Bilirubin 0.6 (0.2-1.0) mg/dL AST 18 (15-37) U/L ALT 29 (14-59) U/L Alkaline Phosphatase 72 (46-116) U/L C-Reactive Protein 2.7 H (0.0-0.9) mg/dL Total Protein 7.5 (6.4-8.2) g/dL Albumin 3.3 L (3.4-5.0) g/dL Globulin 4.2 Albumin/Globulin Ratio 0.79 Amylase 32 (25-115) U/L Lipase 88 (73-393) U/L Influenza Type A RNA Negative (NEGATIVE) Influenza Type B RNA Negative (NEGATIVE) SARS-CoV-2 RNA (GURVINDER) Positive H (NEGATIVE) Meds: Medications Discontinued Medications Generic Name Dose Route Start Last Admin Trade Name Freq PRN Reason Stop Dose Admin Amoxicillin/Clavulanate Potassium 1 tab 03/19/21 20:33 03/19/21 20:43 Amoxicillin/Clavulanate K 875-125 Mg Tab PO 03/19/21 20:34 1 tab ONETIME ONE Administration Benzonatate 200 mg 03/19/21 20:33 03/19/21 20:42 Benzonatate 100 Mg Cap PO 03/19/21 20:34 200 mg ONETIME ONE Administration Ondansetron HCl 4 mg 03/19/21 20:46 12/20/21 20:49 Ondansetron 4 Mg Tab.Dis PO 03/19/21 20:47 4 mg ONETIME ONE Administration Ondansetron HCl 4 mg 03/19/21 21:10 Ondansetron 4 Mg Tab.Dis PO 03/19/21 21:11 ONETIME ONE Prednisone 40 mg 03/19/21 20:33 03/19/21 20:43 Prednisone 20 Mg Tab PO 03/19/21 20:34 40 mg ONETIME ONE Administration Departure - Departure Time of Disposition: 20:35 Disposition: Home, Self-Care 01 Condition: Good Clinical Impression: COVID-19, History of fibromyalgia Sinusitis Qualifiers: Sinusitis location: pansinusitis Chronicity: acute Recurrence: non-recurrent Qualified Code(s): J01.40 - Acute pansinusitis, unspecified - Discharge Information *PRESCRIPTION DRUG MONITORING PROGRAM REVIEWED*: No *COPY OF PRESCRIPTION DRUG MONITORING REPORT IN PATIENT YANETH: No Instructions: COVID-19 Frequently Asked Questions, Sinusitis, Adult, [id number], COVID-19: Quarantine vs. Isolation - [facility] (03/16/2020) Forms: ED Department Discharge Additional Instructions: Encourage fluids tylenol 500mg every 4 hours as needed for fever/ discomfort prednisone taper augmentin 875/125 one twice daily tessalon 200mg every 8 hours as needed for cough urgent follow up if severe difficulty breathing robitussin or muuccinex to loosen phlegm humidifier quarantine 14 days from onset of symptoms Sepsis Event Note (ED) - Evaluation Sepsis Screening Result: No Definite Risk - Focused Exam Vital Signs: Vital Signs Temp Pulse Resp BP Pulse Ox 03/19/21 19:15 100.3 F 101 H 20 144/89 H 95 - My Orders Last 24 Hours: My Active Orders 03/19/21 19:38 CXR [Chest 1V Frontal] [CR] Urgent 03/19/21 19:56 CULTURE BLOOD [BC] Stat - Assessment/Plan Last 24 Hours: My Active Orders 03/19/21 19:38 CXR [Chest 1V Frontal] [CR] Urgent 03/19/21 19:56 CULTURE BLOOD [BC] Stat
[2021-03-19] MEDS ORDERED: Ondansetron 4 MG Tab.DIS PO ONE ×2 (20:46→21:10)
--- NOTE | 2021-03-19 22:10 | CR ---
PROCEDURE INFORMATION: Exam: XR Chest Exam date and time: 03/19/2021 8:16 PM Age: 40 years old Clinical indication: Other: Cough body aches fever covid+ TECHNIQUE: Imaging protocol: XR of the chest. Views: 1 view. COMPARISON: No relevant prior studies available. FINDINGS: Lungs: There are patchy opacities in mid to lower lungs. Pleural spaces: Unremarkable. No pleural effusion. No pneumothorax. Heart/Mediastinum: Unremarkable. No cardiomegaly. Bones/joints: Unremarkable. IMPRESSION: Patchy multifocal infiltrates
== END 2021-03-19 20:57 | disposition home or self-care (01) ==
LOC: DL.ED 19:03
DX: U07.1 COVID-19 (principal); J01.40 Acute pansinusitis, unspecified; E11.9 Type 2 diabetes mellitus without complications; Z88.5 Allergy status to narcotic agent; Z88.8 Allergy status to other drugs, medicaments and biological substances
CPT/HCPCS: 0240U; 36415; 71045; 80053; 82150; 83690; 83735; 85025; 86140; 87040; 99283; A9270; J7512

== ENCOUNTER 2022-03-19 02:37 | Emergency (ER) | payer MEDICAID ==
[2022-03-19 03:01] VITALS: BP 149/93; PULSE 95
== END 2022-03-19 06:59 | disposition home or self-care (01) ==
LOC: DL.ED 02:37
DX: S32.2XXA Fracture of coccyx, initial encounter for closed fracture (principal); E11.9 Type 2 diabetes mellitus without complications; Z91.048 Other nonmedicinal substance allergy status; Z88.8 Allergy status to other drugs, medicaments and biological substances; W19.XXXA Unspecified fall, initial encounter
CPT/HCPCS: 72220; 99283

== ENCOUNTER 2022-03-24 04:53 | Emergency (ER) | payer MEDICAID ==
[2022-03-24] MEDS ORDERED: traMADol 50 MG Tab PO ONE (04:54)
[2022-03-24] MEDS ORDERED: Sodium Chloride 0.9% 10 ML Syringe FLUSH PRN (05:20)
[2022-03-24 05:51] VITALS: BP 120/86; PULSE 117
[2022-03-24 06:18] LABS: ANION GAP 13.9 mEq/L (7-13)
[2022-03-24] MEDS ORDERED: Iopamidol 612 MG/ML 100 ML Bottle IVPUSH ONE (07:23)
[2022-03-24] MEDS ORDERED: traMADol 50 MG Tab ONE (07:49)
== END 2022-03-24 07:55 | disposition home or self-care (01) ==
LOC: DL.ED 04:53
DX: L03.314 Cellulitis of groin (principal); E11.9 Type 2 diabetes mellitus without complications; Z88.8 Allergy status to other drugs, medicaments and biological substances; Z86.16 Personal history of COVID-19; Z90.49 Acquired absence of other specified parts of digestive tract; W19.XXXA Unspecified fall, initial encounter
CPT/HCPCS: 36415; 72193; 80053; 83605; 84703; 85025; 87040; 99284; A9270; J3490; Q9967